=== PATIENT | male | born 1955 | race Caucasian/White ===

== ENCOUNTER → 2016-11-29 | Outpatient (CLI) | payer MEDICARE, OTHER ==
[~2016-11-29] MED LIST: ASPIRIN EC325 MG ORAL; B-50 COMPLEX1 EACH PO; CO Q-10 100 MG1 EAC1 PO; CYMBALTA30 MG ORAL; DEPAKOTE500 MG PO; HYDROCODON-ACE1 EAC4 ORAL; JANUVIA100 MG ORAL; KLONOPIN1 MG ORAL; KLONOPIN2 MG PO; LISINOPRIL10 MG ORAL; METFORMIN HCL750 MG ORAL; NORCO 10-325 T1 EACH ORAL; PREVACID30 MG ORAL; PRILOSEC10 M1 ORAL; THIOTHIXENE2 MG ORAL; VICTOZA 2-0.6 MG/0.1 SUBQ; VITAMIN C500 M1 PO; WELLBUTRIN XL150 M1 ORAL; ZYPREXA5 MG ORAL
--- NOTE | 2016-11-29 16:16 | GI Initial Consult Note ---
Woodward,Pauline Umberto N.P. 11/29/16 1616: History of Present Illness General Date patient seen: Nov 29, 2016 Time patient seen: 15:00 Referring physician: JAGUAR Reason for Consultation: ABDOMINAL PAIN Present Illness HPI 61 year old male patient referred by Dr. Mcnally for evaluation of abdominal pain. He presents today with generalized abdominal pain tender to touch in all quads. He c/o of constipation at times, however had a large BM yesterday morning. He states occasionally, he would have pain associated with his BM. The patient has no history of any endoscopic procedures and concerned that he may have IBS. Home Meds Reported Medications Hydrocodone Bit/Acetaminophen 10-325* (NORCO 10-325*) 1 Each Tablet, 1 TAB ORAL Q6H Y for For Pain, #10 TAB 0 Refills PRN PAIN 08/21/16 Bupropion HCl (Wellbutrin Xl) 300 Mg Tab.er.24h, 150 MG ORAL DAILY for 30 Days, TAB 0 Refills 08/21/16 Omeprazole Magnesium (PRILOSEC) 10 Mg Suspdr.pkt, 20 MG ORAL DAILY, PACKET 08/21/16 Bupropion HCl (Wellbutrin Xl) 150 Mg Tab, 300 MG ORAL DAILY, TAB 05/19/13 Duloxetine Hcl* (CYMBALTA*) 30 Mg Capsule.dr, 60 MG ORAL DAILY 05/19/13 Lisinopril* (LISINOPRIL*) 10 Mg Tablet, 10 MG ORAL DAILY, TAB 05/19/13 Aspirin* (ASPIRIN EC*) 325 Mg Tablet.dr, 325 MG ORAL DAILY, TAB 05/19/13 Sitagliptin (Januvia) 100 Mg Tab, 100 MG ORAL DAILY, TAB 05/19/13 Metformin Hcl (METFORMIN HCL ER) 750 Mg Tab.er.24h, 750 MG ORAL DAILY, TAB 05/19/13 Vitamin B Complex (B-50 COMPLEX) 1 Each Tablet, 1 EACH PO daily 05/19/13 Ascorbic Acid* (VITAMIN C*) 500 Mg Tablet, 1000 MG PO DAILY, TAB 05/19/13 Divalproex Sodium (Depakote) 500 Mg Tabec, 1000 MG PO TID for mood stabilizer 05/19/13 Olanzapine* (ZYPREXA*) 5 Mg Tablet, 7.5 MG ORAL qhs, TAB 05/19/13 Med list reviewed/reconciled: Yes Allergies: Coded Allergies: FLUVOXAMINE (Verified Allergy, Severe, 08/21/16) hypotension and dizziness [id number] REDUCTASE INHIBITOR (Verified Allergy, Mild, Shortness of Breath, 08/21/16) PENICILLIN G (Verified Allergy, Unknown, 01/04/16) Patient History History Provided By: Patient, Medical Record PMH Narrative PAST MEDICAL HISTORY: Diabetes, hypertension, prostatic aortic valve replacement surgery, and history of myocardial infarction, sleep apnea, anxiety with nervous breakdown, schizo affective disorder PAST SURGICAL HISTORY: Including aortic valve replacement and open heart surgery. Tonsillectomy. Family History Narrative N/A Social History: Reports: other - coffee Review of Systems All Other Systems: negative except mentioned in HPI Physical Exam T 97.7 BP 129/78 P 83 94 RA HT 5;6 WT 207.5 lbs Sp02 EP Interpretation: reviewed General Appearance: well appearing, no apparent distress, alert Head: normocephalic EENT: PERRL/EOMI, normal ENT inspection Neck: full range of motion, supple Respiratory: normal inspection, chest non-tender, lungs clear Cardiovascular: normal peripheral pulses, normal rate Gastrointestinal: normal inspection, non tender, soft, normal bowel sounds Rectal: deferred Genitourinary: no CVA tenderness Musculoskeletal: back normal Neurologic: normal inspection, alert, oriented x3, responsive Psychiatric: normal inspection, judgement/insight normal, memory normal Skin: normal inspection, normal color, no rash, warm/dry Lymphatic: normal inspection, no adenopathy GI: Plan Problems: (1) Constipation (2) Colonoscopy planned (3) Dyschezia (4) Abdominal pain Plan colonoscopy scheduled 12/05/16. - CLD + [employer] prep instructions given and acknowledged. trial of Amitiza for constipation Seen with Dr. Mccarthy. Thank you for referring this patient. JERRY MCCARTHY 11/30/16 1156: History of Present Illness Present Illness Home Meds Reported Medications Hydrocodone Bit/Acetaminophen 10-325* (NORCO 10-325*) 1 Each Tablet, 1 TAB ORAL Q6H Y for For Pain, #10 TAB 0 Refills PRN PAIN 08/21/16 Bupropion HCl (Wellbutrin Xl) 300 Mg Tab.er.24h, 150 MG ORAL DAILY for 30 Days, TAB 0 Refills 08/21/16 Omeprazole Magnesium (PRILOSEC) 10 Mg Suspdr.pkt, 20 MG ORAL DAILY, PACKET 08/21/16 Bupropion HCl (Wellbutrin Xl) 150 Mg Tab, 300 MG ORAL DAILY, TAB 05/19/13 Duloxetine Hcl* (CYMBALTA*) 30 Mg Capsule.dr, 60 MG ORAL DAILY 05/19/13 Lisinopril* (LISINOPRIL*) 10 Mg Tablet, 10 MG ORAL DAILY, TAB 05/19/13 Aspirin* (ASPIRIN EC*) 325 Mg Tablet.dr, 325 MG ORAL DAILY, TAB 05/19/13 Sitagliptin (Januvia) 100 Mg Tab, 100 MG ORAL DAILY, TAB 05/19/13 Metformin Hcl (METFORMIN HCL ER) 750 Mg Tab.er.24h, 750 MG ORAL DAILY, TAB 05/19/13 Vitamin B Complex (B-50 COMPLEX) 1 Each Tablet, 1 EACH PO daily 05/19/13 Ascorbic Acid* (VITAMIN C*) 500 Mg Tablet, 1000 MG PO DAILY, TAB 05/19/13 Divalproex Sodium (Depakote) 500 Mg Tabec, 1000 MG PO TID for mood stabilizer 05/19/13 Olanzapine* (ZYPREXA*) 5 Mg Tablet, 7.5 MG ORAL qhs, TAB 05/19/13 Allergies: Coded Allergies: FLUVOXAMINE (Verified Allergy, Severe, 08/21/16) hypotension and dizziness [id number] REDUCTASE INHIBITOR (Verified Allergy, Mild, Shortness of Breath, 08/21/16) PENICILLIN G (Verified Allergy, Unknown, 01/04/16) GI: Plan Plan The patient was seen and examined at bedside and all new and available data was reviewed in the patients chart. I agree with the above findings, impression and plan. (Patient seen earlier today. Signature stamp does not reflect patient encounter time.). -Nida Cedeño MDh Umberto Mackenzie Nov 29, 2016 16:16 JERRY MCCARTHY Nov 30, 2016 11:56
== END | disposition home or self-care (01) ==
LOC: PAN 13:22
DX: K59.00 Constipation, unspecified (principal); R10.9 Unspecified abdominal pain; Z79.82 Long term (current) use of aspirin; Z88.0 Allergy status to penicillin; Z88.8 Allergy status to other drugs, medicaments and biological substances; E11.9 Type 2 diabetes mellitus without complications; I10 Essential (primary) hypertension; Z95.2 Presence of prosthetic heart valve; I25.2 Old myocardial infarction; Z86.59 Personal history of other mental and behavioral disorders
CPT/HCPCS: 99201

== ENCOUNTER 2017-10-09 07:07 | Emergency (ER) | payer MEDICARE, OTHER ==
[~2017-10-09] VITALS: Ht 167.6 cm; Wt 90.7 kg
[~2017-10-09 07:07] MED LIST changes: +DEPAKOTE250 MG PO; +NEURONTIN100 MG ORAL
[2017-10-09 07:30] VITALS: BP 151/83
[2017-10-09] MEDS ORDERED: AMBIEN10 M1 ORAL (07:56)
[2017-10-09 08:03] VITALS: BP 140/78
--- NOTE | 2017-10-09 08:10 | Emergency Room Report ---
History of Present Illness General Chief Complaint: General Complaint Source: Patient Present Illness HPI Patient presents to the emergency department today complaining of difficulty with sleeping. Patient states that he has a history of schizoaffective disorder. 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 He states that he also has a history of insomnia. He states that he is currently not sleeping very well. He states that he hasn't slept well in years but has become worse over the last few days. He states that he needs medications to help him sleep. He has been sleeping 2-3 hours a night. He denies any suicidal or homicidal ideation. Denies any auditory or visual hallucinations. Patient states that he has taken Ambien in the past and has helped him. He does have primary care physician follow-up. Symptoms noted to be moderate to severe.No other modifying factors. No other associated signs and symptoms. No other complaints were noted. Allergies: Coded Allergies: FLUVOXAMINE (Verified Allergy, Severe, 08/21/16) hypotension and dizziness [id number] REDUCTASE INHIBITOR (Verified Allergy, Mild, Shortness of Breath, 08/21/16) PENICILLIN G (Verified Allergy, Unknown, 01/04/16) Patient History Past Medical History: HTN, psych hx, other Past Surgical History: none Pertinent Family History: none Social History: Reports: smoking, alcohol use; Denies: drug use Reviewed Nursing Documentation: PMH: Agreed; PSxH: Agreed Nursing Documentation-PMH Hx Cardiac Problems: Yes - Endocarditis Hx Hypertension: Yes Hx Diabetes: Yes Hx Cancer: No Hx Gastrointestinal Problems: Yes - Constipation Hx Neurological Problems: No Review of Systems All Other Systems: negative except mentioned in HPI Physical Exam Vital Signs Date Time Temp Pulse Resp B/P (MAP) Pulse Ox O2 Delivery O2 Flow Rate FiO2 10/09/17 07:21 98.0 86 18 151/83 95 Room Air 98.1 Sp02 EP Interpretation: reviewed, normal General Appearance: normal inspection, well appearing, no apparent distress, alert Head: atraumatic ENT: normal ENT inspection, hearing grossly normal, normal voice Neck: normal inspection, full range of motion, supple, no bony tend Respiratory: normal inspection, lungs clear, normal breath sounds, no respiratory distress, no retraction, no wheezing Cardiovascular #1: regular rate, rhythm, no edema Gastrointestinal: normal inspection, normal bowel sounds, non tender, soft, no guarding, no hernia Genitourinary: no CVA tenderness Musculoskeletal: normal inspection, back normal, normal range of motion Neurologic: normal inspection, alert, responsive, speech normal Psychiatric: normal inspection, judgement/insight normal, memory normal, no suicidal/homicidal ideation, no delusions, depressed affect, anxious Suicide Risk Assessment: Suicidal Ideation: No Had intent to initiate attempt: No Pt's plan for suicide attempt: No Has means to complete attempt: No Skin: normal inspection, normal color, no rash Medical Decision Making Diagnostic Impression: Primary Impression: Depression Qualified Codes: F32.9 - Major depressive disorder, single episode, unspecified Additional Impression: Insomnia Qualified Codes: F51.01 - Primary insomnia ER Course Patient presents to the emergency department today with insomnia. Differential diagnoses include depression, chronic insomnia, drug withdrawal just to name a few. Patient's exam fairly benign. Patient is not suicidal or homicidal. I felt the patient might benefit from a short period of benzodiazepines. Patient was given a prescription for Ambien. The patient is advised to follow-up with outpatient primary care physician and psychiatry.Patient is advised to follow up with primary doctor in 2-3 days and return the emergency room for any worsening symptoms and as needed. Last Vital Signs Date Time Temp Pulse Resp B/P (MAP) Pulse Ox O2 Delivery O2 Flow Rate FiO2 10/09/17 07:30 98.1 86 18 151/83 95 Room Air 98.1 Status: improved Disposition: HOME, SELF-CARE Condition: Stable Scripts Zolpidem Tartrate* (AMBIEN*) 10 Mg Tablet 10 MG ORAL HS PRN for Insomnia, #7 TAB Prov: MARYANNE CHANEY M.D. 10/09/17 Patient Instructions: Insomnia MARYANNE CHANEY M.D. Oct 09, 2017 08:10
--- NOTE | 2017-10-14 09:00 | IOP Physician Progress Note ---
IOP Physician Progress Note Problem: other (specify) Description of Symptoms: The patient says that he is on good meds, and the program helps. Feels he also needs a therapist. Wants to continue to work with his anger, but otherwise thinks he is doing better. Sleep is improved. Diagnosis (1) Depression (2) Insomnia [place] I: Bipolar disorder [place]: II deferred [place]: III back problems, status p open heart surgery, osteoarthritis [place]: IV moderate [place]: V 31-40 Progress Since Last Eval: The patient is showing more awareness of some of his underlying problems. Current Med Management: This is under review. But he thinks the current regime is stabilizing for him. Home Meds: Active Scripts Zolpidem Tartrate* (AMBIEN*) 10 Mg Tablet, 10 MG ORAL HS PRN for Insomnia, #7 TAB Prov:MARYANNE CHANEY M.D. 10/09/17 Reported Medications Gabapentin* (NEURONTIN*) 100 Mg Capsule, 300 MG ORAL THREE TIMES A DAY, #15 CAP 0 Refills 06/18/17 Divalproex Sodium* (DEPAKOTE*) 250 Mg Tablet.dr, 1000 MG PO Q12HR, TAB 06/18/17 Clonazepam (KLONOPIN) 2 Mg Tablet, 2 MG PO, TAB 12/05/16 Liraglutide (VICTOZA 2-MARIO) 0.6 Mg/0.1 Ml Pen.injctr, 1.8 MG SUBQ DAILY, EA 0 Refills 12/05/16 Hydrocodone Bit/Acetaminophen 10-325* (NORCO 10-325*) 1 Each Tablet, 1 TAB ORAL Q6H PRN for For Pain, #10 TAB 0 Refills PRN PAIN 08/21/16 Bupropion HCl (Wellbutrin Xl) 300 Mg Tab.er.24h, 150 MG ORAL DAILY for 30 Days, TAB 0 Refills 08/21/16 Omeprazole Magnesium (PRILOSEC) 10 Mg Suspdr.pkt, 20 MG ORAL DAILY, PACKET 08/21/16 Bupropion HCl (Wellbutrin Xl) 150 Mg Tab, 300 MG ORAL DAILY, TAB 05/19/13 Duloxetine Hcl* (CYMBALTA*) 30 Mg Capsule.dr, 90 MG ORAL DAILY 05/19/13 Lisinopril* (LISINOPRIL*) 10 Mg Tablet, 10 MG ORAL DAILY, TAB 05/19/13 Aspirin* (ASPIRIN EC*) 325 Mg Tablet.dr, 325 MG ORAL DAILY, TAB 05/19/13 Vitamin B Complex (B-50 COMPLEX) 1 Each Tablet, 1 EACH PO daily 05/19/13 Ascorbic Acid* (VITAMIN C*) 500 Mg Tablet, 1000 MG PO DAILY, TAB 05/19/13 Olanzapine* (ZYPREXA*) 5 Mg Tablet, 7.5 MG ORAL qhs, TAB 05/19/13 Appearance: well groomed Affect: labile Mood: anxious Thought Process: no abnormalities Thought Content: no abnormalities Suicidal/Homicidal Ideations: not present Risk Assessment: low risk at this time Cognition: no abnormalities Accomplishments before DC: Needs to work on mood stabilization. Comments There are no acute physical problems. Abdifatah Reyes MD Oct 14, 2017 09:00
== END 2017-10-09 08:08 | disposition home or self-care (01) ==
LOC: EMR 07:48
DX: F32.9 Major depressive disorder, single episode, unspecified (principal); F51.01 Primary insomnia; I10 Essential (primary) hypertension; E11.9 Type 2 diabetes mellitus without complications
CPT/HCPCS: 99283

== ENCOUNTER 2017-12-12 11:24 | Emergency (ER) | payer MEDICARE, OTHER ==
[~2017-12-12] VITALS: Ht 167.6 cm; Wt 93.0 kg
[~2017-12-12 11:24] MED LIST changes: +AMBIEN10 M1 ORAL
[2017-12-12] MEDS ORDERED: MECLIZINE HCL25 MG ORAL (11:53)
[2017-12-12 12:10] VITALS: BP 147/85
[2017-12-12 12:12] VITALS: BP 147/85
--- NOTE | 2017-12-13 07:36 | Emergency Room Report ---
History of Present Illness General Chief Complaint: General Complaint Present Illness HPI The patient is a 62-year-old male who presented after increased ringing in his years. Patient reports having some vertigo sensation. He states that he had been having some change in his hearing on his right side. He denies any fever. Patient states she's had similar symptoms in the past. Patient prior aortic valve replacement. Patient reportedly had echocardiogram performed approximately 2 weeks ago. He denies any fever. He denies vomiting.The patient was noted to have prior history of anxiety. Allergies: Coded Allergies: FLUVOXAMINE (Verified Allergy, Severe, 08/21/16) hypotension and dizziness [id number] REDUCTASE INHIBITOR (Verified Allergy, Mild, Shortness of Breath, 08/21/16) PENICILLIN G (Verified Allergy, Unknown, 01/04/16) Patient History Past Medical History: see triage record Reviewed Nursing Documentation: PMH: Agreed; PSxH: Agreed Nursing Documentation-PMH Hx Cardiac Problems: Yes - Endocarditis Hx Hypertension: Yes Hx Diabetes: Yes Hx Cancer: No Hx Gastrointestinal Problems: Yes - Constipation Hx Neurological Problems: No Review of Systems All Other Systems: negative except mentioned in HPI Physical Exam Vital Signs Date Time Temp Pulse Resp B/P (MAP) Pulse Ox O2 Delivery O2 Flow Rate FiO2 12/12/17 11:28 98.1 94 16 147/85 93 Room Air 98.1 General Appearance: well appearing, no apparent distress, alert, GCS 15 Head: normocephalic, atraumatic ENT: hearing grossly normal, normal voice Neck: full range of motion, supple Respiratory: no respiratory distress, speaking full sentences Cardiovascular #1: normal inspection Gastrointestinal: normal inspection, normal bowel sounds Musculoskeletal: no calf tenderness Neurologic: normal inspection, alert, oriented x3, normal gait Psychiatric: mood/affect normal Skin: no rash Medical Decision Making Diagnostic Impression: Primary Impression: Vertigo ER Course Patient presented for dizziness. Differential diagnosis included was not limited to CVA, vertebrobasilar insufficiency, myocardial infarction, benign positional vertigo, labyrinthitis, aspirin overdose among others. The patient has exam consistent with peripheral vertigo likely do to benign positional vertigo. Patient was given prescription for oral meclizine. Given the patient' s recent echo and lack of fever I feel endocarditis is very unlikely. The patient is advised to follow up with primary care doctor in 1-2 days. Patient is advised to return if any worsening condition or if any changes in status that are concerning. This report is dictated with [employer] brake drum lathe operator software which may occasionally lead to discrepancies related to use of this software. Last Vital Signs Date Time Temp Pulse Resp B/P (MAP) Pulse Ox O2 Delivery O2 Flow Rate FiO2 12/12/17 12:12 98.1 80 16 147/85 93 Room Air 98.1 Status: improved Disposition: HOME, SELF-CARE Condition: Stable Scripts Meclizine Hcl* (MECLIZINE*) 25 Mg Tablet 25 MG ORAL THREE TIMES A DAY, #20 TAB Prov: Abdiaziz Clark MD 12/12/17 Referrals: NOT CHOSEN IPA/,REFERRING Patient Instructions: Vertigo Abdiaziz Clark MD Dec 13, 2017 07:36
== END 2017-12-12 12:13 | disposition home or self-care (01) ==
LOC: EMR 11:57
DX: R42 Dizziness and giddiness (principal); E11.9 Type 2 diabetes mellitus without complications; I10 Essential (primary) hypertension; Z88.0 Allergy status to penicillin; Z88.8 Allergy status to other drugs, medicaments and biological substances
CPT/HCPCS: 99283

== ENCOUNTER 2018-10-26 10:09 | Emergency (ER) | payer MEDICARE, OTHER ==
[~2018-10-26] VITALS: Ht 167.6 cm; Wt 90.7 kg
[~2018-10-26 10:09] MED LIST changes: +COQ1050 MG PO; +DIVALPROEX SOD500 MG PO; +FISH OIL 1,2001 EAC3 PO; +JANUVIA25 MG ORAL; +MECLIZINE HCL25 MG ORAL; +NIZORAL 2% C1 APPLIC TOPIC; +TRULICITY0.75 MG/0. SQ; +TURMERIC 500 M1 EAC1 PO; +VITAMIN B COMP1 EAC5 PO; +VITAMIN C500 M1 ORAL; +ZEGERID 20 MG1 EACH ORAL
[2018-10-26 10:26] VITALS: BP 132/77
--- NOTE | 2018-10-26 10:36 | NUR ---
ED Nurse Note: Pt came in due for medications for his insomnia. Pt states he is having trouble to sleep x 1 week and has voices in his head but unclear of what the voices tell him. Denies SI. Pt is AAO x4, ambulatory with unlabored breathing.
--- NOTE | 2018-10-26 11:00 | NUR ---
ER DISCHARGE NOTE: Patient is cleared to be discharged per ERMD, pt is aox4, on room air, with stable vital signs. pt was given dc instructions, pt was able to verbalize understanding, pt id band removed. pt is able to ambulate with steady gait. pt took all belongings.
--- NOTE | 2018-10-28 14:20 | IOP Daily Group Progress Note ---
IOP Daily Group Progress Note Treatment Plan/Target Problem: Date: October 28, 2018 Group Reflections - Saturday: group 1 (9:40am-10:25am) Therapy Goal(s) of Group: anxiety reduction, assertiveness skills, communication skills , coping tools for symptoms, coping with change, counteracting negative thinking , decreasing isolation, establishing appropriate boundaries Observations: active listening skills, engaged, open, participated, participated spontaneously, participating actively, self disclosing Staff Intervention: assessed for safety/suicidality, normalized feelings, provided support, reflective listening, validated feelings Staff Intervention: Migration Specialist coordinated the patient checking in process, encouraging the pt to discuss current stressors and positives aspects of their journeys. Therapist encouraged patient to identify and verbalize their current mood and feelings that might influence it when performing activities of daily living and interacting with others. Therapist role modeled active listening skills for patient, and invited them to provide feedback to each other to promote empathy development. Therapist validate patient feelings and provided unconditional support while fostering patient participation. Response/Progress Noted: Patient participated spontaneously in the group discussion patient was very talkative and attentive. Patient did not need to be prompted to participate during the group session and to share current stressors and positive events. Patient was engaged during group activity, patient shared with the group that he was not feeling well due his struggles to find a home. Patient disclosed that his employer will built an adjacent room at his house for him. Patient benefited from participating in this group session by identifying and verbalizing present mood and its influence in feelings and actions. EDI HUYNH October 28, 2018 14:20
--- NOTE | 2018-10-28 14:45 | Emergency Room Report ---
History of Present Illness General Chief Complaint: General Complaint Source: Patient Present Illness HPI Is a 63-year-old male who presented after increased difficulty with sleeping. Patient reports having prior history of bipolar disorder. He states that he had been taking multiple Medications. He reportedly had requested a Haldol prescription from his primary psychiatrist. Patient had been taking Zyprexa as well as other medications but had still had some difficulty with sleeping. Allergies: Coded Allergies: FLUVOXAMINE (Verified Allergy, Severe, 08/21/16) hypotension and dizziness [id number] REDUCTASE INHIBITOR (Verified Allergy, Mild, Shortness of Breath, 08/21/16) PENICILLIN G (Verified Allergy, Unknown, 01/04/16) Patient History Past Medical History: see triage record Reviewed Nursing Documentation: PMH: Agreed; PSxH: Agreed Nursing Documentation-PMH Hx Cardiac Problems: Yes - Endocarditis, CABG x 2 Hx Hypertension: Yes Hx Diabetes: Yes Hx Cancer: No Hx Gastrointestinal Problems: Yes - Constipation History Of Psychiatric Problem: Yes - Bipolar Hx Neurological Problems: No Review of Systems All Other Systems: negative except mentioned in HPI Physical Exam Vital Signs Date Time Temp Pulse Resp B/P (MAP) Pulse Ox O2 Delivery O2 Flow Rate FiO2 10/26/18 10:26 98.1 91 18 92 Room Air 10/26/18 10:26 132/77 Sp02 EP Interpretation: reviewed, normal General Appearance: alert/responsive, no apparent distress, GCS 15, non-toxic Head: atraumatic Eyes: PERRL, lids + conjunctiva normal ENT: hearing intact, no angioedema Neck: supple/symm/no masses, no meningismus Respiratory: effort normal, no wheezing, chest symmetrical Cardiovascular: regular rate, rhythm, no edema Cardiovascular #2: 2+ carotid (R), 2+ carotid (L), 2+ dorsalis pedis (R), 2+ dorsalis pedis (L) Gastrointestinal: non-tender, no mass, non-distended, no rebound/guarding, normal bowel sounds Musculoskeletal: gait & station normal, strength & tone normal, normal ROM, non -tender Neurologic: normal inspection, CN II-XII intact, oriented x3, sensory intact, normal speech Psychiatric: normal inspection, judgment & insight normal, no suicidal/ homicidal ideation Skin: no rash, well hydrated Lymphatic: normal inspection Medical Decision Making Diagnostic Impression: Primary Impression: Insomnia ER Course Patient presented for insomnia. Differential diagnosis include was not limited to psychosis, medication withdrawal, manic phase of bipolar, Among others. Patient has a benign exam and does not appear to require any further imaging or laboratory testing at this time. Patient was noted to have prior history of bipolar but does not appear to be manic. He does not have any pressured speech and appears to be compliant with his medications. Patient denies any suicidal thoughts. Patient was advised medication adjustment with his psychiatrist. He was advised sleep hygiene. He was advised to follow-up with his primary care physician or psychiatrist for medication adjustment as needed. Last Vital Signs Date Time Temp Pulse Resp B/P (MAP) Pulse Ox O2 Delivery O2 Flow Rate FiO2 10/26/18 11:11 98.1 75 18 132/77 92 Room Air Status: improved Disposition: HOME, SELF-CARE Condition: Stable Referrals: NON PHYSICIAN (PCP) Patient Instructions: Insomnia Abdiaziz Clark MD October 28, 2018 14:45
== END 2018-10-26 11:00 | disposition home or self-care (01) ==
LOC: EMR 11:00
DX: G47.00 Insomnia, unspecified (principal); F31.9 Bipolar disorder, unspecified; Z79.899 Other long term (current) drug therapy; Z88.0 Allergy status to penicillin; Z88.8 Allergy status to other drugs, medicaments and biological substances; I10 Essential (primary) hypertension; E11.9 Type 2 diabetes mellitus without complications; Z95.1 Presence of aortocoronary bypass graft
CPT/HCPCS: 99282

== ENCOUNTER 2018-11-26 13:54 | Outpatient (CLI) | payer MEDICARE, OTHER ==
--- NOTE | 2018-11-26 14:36 | General Progress Note ---
Assessment/Plan Problem List: (1) abnormal liver enzymes, probably 2/2 depakote (2) Constipation ICD Codes: K59.00 - Constipation, unspecified SNOMED: 50945543 (3) Depression ICD Codes: F32.9 - Major depressive disorder, single episode, unspecified SNOMED: 75960213 (4) Abdominal pain ICD Codes: R10.9 - Unspecified abdominal pain SNOMED: 38424401 (5) Colonoscopy planned SNOMED: 625815866 (6) chronic pain , opiate dependent Assessment/Plan: refill Amitiza last cln in 2017 poor prep with 5 polyps, plan repeat colon Subjective ROS Limited/Unobtainable: Yes Allergies: Coded Allergies: FLUVOXAMINE (Verified Allergy, Severe, 08/21/16) hypotension and dizziness [id number] REDUCTASE INHIBITOR (Verified Allergy, Mild, Shortness of Breath, 08/21/16) PENICILLIN G (Verified Allergy, Unknown, 01/04/16) Objective General Appearance: alert EENT: normal ENT inspection Neck: supple Cardiovascular: normal rate Respiratory/Chest: decreased breath sounds Abdomen: normal bowel sounds, non tender, soft Extremities: non-tender Rob Iyer MD Nov 26, 2018 14:36
== END 2018-11-26 15:54 | disposition home or self-care (01) ==
LOC: PAN 13:54
DX: K59.00 Constipation, unspecified (principal); F32.9 Major depressive disorder, single episode, unspecified; R10.9 Unspecified abdominal pain; G89.29 Other chronic pain; F11.20 Opioid dependence, uncomplicated; R94.5 Abnormal results of liver function studies; Z88.0 Allergy status to penicillin; Z88.8 Allergy status to other drugs, medicaments and biological substances
CPT/HCPCS: 99212

== ENCOUNTER 2019-02-10 13:13 | Emergency (ER) | payer MEDICARE, OTHER ==
[~2019-02-10] VITALS: Ht 165.1 cm; Wt 81.6 kg
[~2019-02-10 13:13] MED LIST changes: +ACETAMINOPHEN325 M1 ORAL; +AMITIZA24 MCG ORAL; +HALDOL5 MG ORAL; +MOVANTIK25 MG PO
--- NOTE | 2019-02-10 13:25 | Emergency Room Report ---
History of Present Illness General Chief Complaint: Upper Respiratory Illness Source: Patient Present Illness HPI 63-year-old male presents to the emergency department complaining of persistent productive cough x3 days after being [facility] from [facility] facility. Patient denies hemoptysis he denies chest pain he reports some wheezing he denies history of asthma or COPD. Patient denies fevers or chills. Denies swelling of the lower extremities. Pt. has hx of aortic valve replacement in 2011, and endocarditis in 2014. Denies hx of CHF. Denies sore throat, nasal congestion, rhinorrhea, neck pain/stiffness or headache. Patient does report 5 out of 10 severity pain throughout the rib cage during active coughing. He states he feels like he has mucus stuck in his throat that he is unable to clear easily. No other aggravating or relieving factors at this time. Allergies: Coded Allergies: FLUVOXAMINE (Verified Allergy, Severe, 08/21/16) hypotension and dizziness [id number] REDUCTASE INHIBITOR (Verified Allergy, Mild, Shortness of Breath, 08/21/16) AMOXICILLIN (Unverified Allergy, Unknown, 02/10/19) PENICILLIN G (Verified Allergy, Unknown, 01/04/16) PENICILLINS (Unverified Allergy, Unknown, 02/10/19) Patient History Past Medical History: see triage record Past Surgical History: none Pertinent Family History: none Immunizations: UTD Reviewed Nursing Documentation: PMH: Agreed; PSxH: Agreed Nursing Documentation-[facility] Past Medical History: No History, Except For Hx Hypertension: Yes Hx Diabetes: Yes Hx Cancer: No Hx Gastrointestinal Problems: Yes - Constipation Hx Neurological Problems: No Review of Systems All Other Systems: negative except mentioned in HPI Physical Exam Vital Signs Date Time Temp Pulse Resp B/P (MAP) Pulse Ox O2 Delivery O2 Flow Rate FiO2 02/10/19 13:05 98.4 98 18 157/82 (107) 96 Sp02 EP Interpretation: reviewed, normal General Appearance: no apparent distress, alert, GCS 15, non-toxic Head: normocephalic, atraumatic Eyes: bilateral eye normal inspection, bilateral eye PERRL ENT: hearing grossly normal, normal pharynx, normal voice, TMs + canals normal , uvula midline Neck: full range of motion Respiratory: lungs clear, no rhonchi, speaking full sentences, wheezing Cardiovascular #1: regular rate, rhythm, no edema Gastrointestinal: non tender, soft Musculoskeletal: back normal, gait/station normal, normal range of motion, non- tender Neurologic: alert, oriented x3, responsive, motor strength/tone normal, sensory intact, speech normal, grossly normal Psychiatric: judgement/insight normal Lymphatic: no adenopathy Medical Decision Making PA Attestation Dr. Clark is my supervising Physician whom patient management has been discussed with. Diagnostic Impression: Primary Impression: Atypical pneumonia ER Course 63-year-old male presents to the emergency department complaining of persistent productive cough x3 days after being discharged from halfway facility. Patient denies hemoptysis he denies chest pain he reports some wheezing he denies history of asthma or COPD. Patient denies fevers or chills. Denies swelling of the lower extremities or the of cardiac failure. Denies sore throat , nasal congestion, rhinorrhea, neck pain/stiffness or headache. Patient does report 5 out of 10 severity pain throughout the rib cage during active coughing. He states he feels like he has mucus stuck in his throat that he is unable to clear easily. No other aggravating or relieving factors at this time. Ddx considered but are not limited to URI, pneumonia, PE, strep pharyngitis, meningitis. Vital signs: Pt. is afebrile, the remaining VS are WNL H&PE are most consistent with URI- no meningeal signs, oropharynx is not involved, Low/no cardiac suspicion. Pt. NAD not in respiratory distress. ORDERS: -CXR: WNL ED INTERVENTIONS: -DuoNebs x 3 --PT. EDUCATION: The risk of QT prolongation , pt. reports he has tolerated Z- pack multiple times by his doctor. DISCHARGE: At this time pt. is stable for d/c to home. Will provide printed patient care instructions, and any necessary prescriptions. Care plan and follow up instructions have been discussed with the patient prior to discharge. Chest X-Ray Diagnostic Results Chest X-Ray Diagnostic Results : Chest X-Ray Ordered: Yes # of Views/Limited/Complete: 1 View Indication: Shortness of Breath EP Interpretation: Yes RODERICK Xray: Interpretation reviewed, by supervising MD, and agrees with findings. Interpretation: no consolidation, no effusion, no pneumothorax, no acute cardiopulmonary disease Impression: No acute disease Electronically Signed by: Monica Phoenix PA-C Last Vital Signs Date Time Temp Pulse Resp B/P (MAP) Pulse Ox O2 Delivery O2 Flow Rate FiO2 02/10/19 13:05 98.4 98 18 157/82 (107) 96 Status: improved Disposition: HOME, SELF-CARE Condition: Stable Scripts Guaifenesin/Dextromethorphan (Guaifenesin Dm Syrup) 5 Ml Syrup 1 TSP ORAL Q8H, #118 ML 0 Refills Prov: Monica Phoenix 02/10/19 Prednisone* (PREDNISONE*) 20 Mg Tablet 40 MG ORAL DAILY for 5 Days, #10 TAB Prov: Monica Phoenix 02/10/19 Albuterol Sulfate* (ALBUTEROL SULFATE MDI*) 8.5 Gm Hfa.aer.ad 2 PUFF INH Q3H, #1 INH 0 Refills Prov: Monica Phoenix 02/10/19 Azithromycin* (ZITHROMAX*) 250 Mg Tablet 250 MG ORAL DAILY, #6 TAB 0 Refills Take two tables once daily for 1 day, then one tablet once daily for 4 days. Prov: Monica Phoenix 02/10/19 Patient Instructions: Upper Respiratory Infection, Adult Additional Instructions: Take medications as directed. Follow up with a Primary Care Provider in 3-5 days, even if your symptoms have resolved. --Please review list of primary care clinics, if you do not already have a primary care provider Return sooner to ED if new symptoms occur, or current symptoms become worse. Do not drink alcohol, drive, or operate heavy machinery while taking Cough Syrup as this may cause drowsiness. - Please note that this Emergency Department Report was dictated using [employer] technology software, occasionally this can lead to erroneous entry secondary to interpretation by the dictation equipment. Monica Phoenix Feb 10, 2019 13:25
[2019-02-10 13:50] VITALS: BP 157/82
[2019-02-10] MEDS: Albuterol/Ipratropium 3ml neb HHN SCH ×3 (13:50→14:23)
[2019-02-10] MEDS ORDERED: GUAIFENESIN DM118 M1 ORAL (14:44)
[2019-02-10] MEDS ORDERED: ALBUTEROL SULF8.5 GM INH (14:44)
[2019-02-10] MEDS ORDERED: ZITHROMAX250 MG ORAL (14:44)
[2019-02-10] MEDS ORDERED: PREDNISONE20 MG ORAL (14:44)
[2019-02-10 15:00] VITALS: BP 157/82
--- NOTE | 2019-02-10 16:32 | Diagnostic Imaging Report ---
Indication: Chest pain Technique: One view of the chest Comparison: 03/03/2015 Findings: The lungs and pleural spaces are clear. The heart size is normal. There are median sternotomy sutures. No significant interim change Impression: No acute process
== END 2019-02-10 15:00 | disposition home or self-care (01) ==
LOC: EDBD 13:13 → EMR 14:00
DX: J18.9 Pneumonia, unspecified organism (principal); E11.9 Type 2 diabetes mellitus without complications; I10 Essential (primary) hypertension; Z88.8 Allergy status to other drugs, medicaments and biological substances; Z88.1 Allergy status to other antibiotic agents; Z88.0 Allergy status to penicillin; Z95.2 Presence of prosthetic heart valve
CPT/HCPCS: 71045; 94640; 94664; 99284; J7620